=== PATIENT | male | born 1985 | race Hispanic/Latino ===

== ENCOUNTER 2017-12-18 20:28 | Inpatient (IN) | payer SELFPAY ==
[~2017-12-18 20:28] MED LIST: ISOVUE-370 76%-LOCM 1 ML ONE
[2017-12-18] MEDS ORDERED: Morphine 4 MG/ML VIAL ONE (21:54)
[2017-12-18] MEDS ORDERED: Ondansetron HCl/PF 4 MG/2 ML Vial ONE (21:54)
[2017-12-18 22:08] LABS: #Basophils 0.1 thou/uL (0.0-0.2); #Eosinphils 0.2 thou/uL (0.0-0.7); #Lymphocytes 2.2 thou/uL (1.20-3.40); #Monocytes 1.1 thou/uL (0.11-0.59); %Basophils 0.6 % (0.0-1.0); %Eosinophils 1.6 % (0.0-10.0); %Lymphocytes 20.6 % (21.0-51.0); %Monocytes 10.2 % (0.0-10.0); Hemoglobin 13.2 g/dL (14.0-18.0); Mean Corpuscular HGB CONC 32.5 g/dL (32.0-36.0); Mean Corpuscular Hemoglobin 29.2 pg (27.0-31.0); Mean Corpuscular Volume 90.1 fl (80.0-94.0); Mean Platelet Volume 7.1 fL (7.4-10.4); Platelet Count 266 thou/uL (130-400); RBC Distribution Width 12.3 % (11.5-14.5); Red Blood Cell (RBC) Count 4.51 mill/uL (4.70-6.10); White Blood Cell (WBC) Count 10.5 thou/uL (4.8-10.8)
[2017-12-18 22:30] LABS: ALT (SGPT) 22 U/L (8-55); AST (SGOT) 17 U/L (5-34); Albumin 4.1 g/dL (3.5-5.0); Alkaline Phosphatase 80 U/L (40-150); Anion Gap 12 mmol/L (10-20); BUN (Urea Nitrogen) 13 mg/dL (8.9-20.6); Bilirubin, Total 0.3 mg/dL (0.2-1.2); CRP (Inflammatory) 4.79 mg/dL (= or < 0.5); Calc. Creatinine Clearance 0 mL/min (70-130); Calcium 9.2 mg/dL (7.8-10.44); Carbon Dioxide 25 mmol/L (22-29); Chloride 105 mmol/L (98-107); Estimated GFR-MDRD Greater than 90; Globulin 3.4 g/dL (2.4-3.5); Glucose 91 mg/dL (70-105); Potassium 3.8 mmol/L (3.5-5.1); Protein, Total 7.5 g/dL (6.0-8.3); Sodium 138 mmol/L (136-145)
[2017-12-19] MEDS ORDERED: Ketorolac Tromethamine 30 MG/ML VIAL ONE (00:21)
[2017-12-19] MEDS ORDERED: Piperacillin/Tazobactam 4.5 GM in Sodium Chloride 0.9% 100 ML IVPB SCH (00:30)
[2017-12-19] MEDS: Sodium Chloride 0.9% 1,000 ML IV SCH ×2 (03:00→13:47)
[2017-12-19 03:27] VITALS: BMI 40.1
--- NOTE | 2017-12-19 06:55 | CT ---
CT PELVIS: 12/18/2017 HISTORY: Swelling in the perianal region. Pain. COMPARISON: None. TECHNIQUE: Serial axial CT imaging is obtained at 5 mm intervals, through the pelvis, without contrast. Coronal reformatted imaging obtained. FINDINGS: There is skin thickening and fat stranding involving the perineum, in the perianal region, best seen on axial images 54 through 60, to the right of midline, with a very small subcutaneous fluid collecti on in this region, on coronal image 104 and axial image 58, measuring in the 1.2 cm range, suggesting a small abscess or phlegmon. The imaged bowel is unremarkable, including the appendix. The vascular structures appear patent. No acute osseous abnormality is seen. IMPRESSION: There is perineal subcutaneous fat stranding and skin thickening in the perianal region, primarily to the right of midline, with a small, subcutaneous fluid collection, suggesting a small perineal, wes anal abscess/phlegmon, just anterior and to the right of the expected region of the anus. POS: NEHA
[2017-12-19] MEDS ORDERED: HYDROcodone/Acetaminophen 5/325 mg Tablet PO PRN (08:14)
--- NOTE | 2017-12-19 08:22 | HP ---
CHIEF COMPLAINT: Rectal pain. HISTORY OF PRESENT ILLNESS: This is a 32-year-old male with minimal past medical history, who presen ts with a chief complaint of rectal pain over the last 4 days that has been progressively worsening a nd now he has painful bowel movements. At the time of my evaluation, the patient's pain is significantly improved on morphine p.r.n. for yenny n control. He has been seen in the emergency department and had a CT of the pelvis completed, and it demonstrates perirectal abscess. It also appears that it just started draining earlier today until this point in time. REVIEW OF SYSTEMS: As per HPI. Constitutional: No fevers, no chills. HEENT: No headaches, no diz ziness. No vision changes. Cardiovascular: No chest pressure, no chest pain, no left-sided arm num bness or tingling. Respiratory: No shortness of breath, no cough, no congestion, no postnasal drip. Gastrointestinal: No nausea, vomiting, abdominal pain, diarrhea or constipation. Musculoskeletal: No new myalgias or arthralgias. Remainder of review of systems, otherwise, negative. PAST MEDICAL HISTORY: As per above. No prior surgeries. No prior medical issues that the patient i s aware of. HOME MEDICATIONS: None. ALLERGIES: None. FAMILY HISTORY: No family history of recurrent infections, recurrent abscesses, or gastrointestinal issues that the patient is aware of. SOCIAL HISTORY: Denies any alcohol, tobacco, or illicit drug use. He is accompanied by his signific ant other today. PHYSICAL EXAMINATION: VITAL SIGNS: Temperature 99.2, pulse of 82, respirations 18, satting 95% on room air, blood pressure 108/52. GENERAL: The patient is awake, alert, oriented x3, in no acute distress, lying in the bed. HEENT: Moist mucous membranes. Equal ocular motions are intact. The patient is normocephalic, atra umatic. CARDIOVASCULAR: S1 and S2. No murmurs, rubs, or gallops. Pulses 2+ bilateral upper extremities, no pitting pedal edema. RESPIRATORY: Clear to auscultation bilaterally. No wheezes, rales, or rhonchi. Reasonable air move ment. ABDOMEN: Positive bowel sounds. Soft, nontender to palpation. MUSCULOSKELETAL: Moving all 4 extremities equally. LABORATORY DATA AND IMAGING: WBC 10.5, hemoglobin 13.2, hematocrit 40.6, platelets 266. Sodium 138, potassium 3.8, chloride 105, bicarbonate 25, BUN 13, creatinine 0.8, glucose 91, lactic acid 1.2, ca lcium 9.2, total bilirubin 0.3, AST 17, ALT 22, alkaline phosphatase 80, CRP 4.79, total protein 7.5, albumin 4.1. 12/18/2017, pelvis CT, impression, "there is perineal subcutaneous fat stranding and skin thickening in the perianal region, primarily to the right of midline, with a small subcutaneous fluid collection, suggesting a small perineal/perianal abscess/phlegmon just anterior to the right of the expected region of the anus." ASSESSMENT AND PLAN: This is a 32-year-old male, who presents with rectal pain. 1. Rectal pain, likely represent a perianal abscess as discussed above in the imaging. The patient would initially have received a dose of piperacillin-tazobactam. Given the patient's debility, we wi ll deescalate to metronidazole and ciprofloxacin. I appreciate surgical consultation. Pain control, n.p.o., IV fluids. 2. Diet: As above. 3. Activity: As tolerated. 4. Deep venous thrombosis prophylaxis, heparin. Thank you for asking me to care for the patient. If any questions or concerns, contact me at [facility].
[2017-12-19] MEDS ORDERED: Ketorolac Tromethamine 30 MG/ML VIAL IVP PRN (11:05)
[2017-12-19] MEDS ORDERED: Acetaminophen 1,000 MG in Premix Bag 1 BAG IVPB PRN (11:05)
[2017-12-19] MEDS ORDERED: Acetaminophen 1,000 MG in Premix Bag 1 BAG IVPB SCH (11:15)
[2017-12-19] MEDS ORDERED: Ketorolac Tromethamine 30 MG/ML VIAL IVP SCH (11:15)
--- NOTE | 2017-12-19 11:32 | HP ---
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 He was seen in the emergency room yesterday evening. CAT scan obtained of pelvis revealing perianal stranding, perineal soft subcutaneous fluid collection sug gesting abscess or phlegmon. He reports normal urinary stream. White count is 10. He has remained afebrile. Exam reveals perineal mass suspicious for an abscess. There is no redness. There is priscilla ration. ALLERGIES: None. TOBACCO: None. ALCOHOL: None. MEDICATIONS: None routinely. PAST SURGICAL HISTORY: Noncontributory. REVIEW OF SYSTEMS: Ten point noncontributory. PHYSICAL EXAMINATION: GENERAL: 5' 2", 219 pounds, 40 BMI. VITAL SIGNS: Temperature 99.2, 82 heart rate, 18 respiration rate, 108/52. HEENT: Unremarkable. LUNGS: Clear to auscultation. CARDIAC: No murmur or gallop. ABDOMEN: Soft, nontender, no masses. EXTREMITIES: Unremarkable. No ankle edema, no venous stasis changes. No lymphadenopathy, groins, a xilla or neck. In his perineum, there is an induration to the right of midline is tender. It is obl miriam. It is between the anus and the scrotum. ASSESSMENT AND PLAN: Perineal abscess. We will plan incision and drainage. We will plan to place a Chatterjee intraoperatively to avoid urethral injury. Risks of infection, bleeding, reoperation and plan to leave the wound open to heal by secondary intention expectations. He will be discharged home tod ay on oral antibiotics with outpatient wound care. Follow up in my office in 2-3 weeks explained. H e will be off for 2-3 days.
[2017-12-19] MEDS ORDERED: metroNIDAZOLE 500 MG in Premix Bag 1 BAG IVPB SCH (14:00)
--- NOTE | 2017-12-19 15:08 | PDOC.EVN ---
Event Note - Event Note Event Note: pt seen & examined. Care reviewed. To OR today per GS for I&D of perianal abscess. Pt denies h/o same, no AP/bloody diarhea.No personal or FH of IBD. cont ABx. Dc when Ok w GS. hemodynamically stable
[2017-12-19] MEDS ORDERED: Ondansetron HCl/PF 4 MG/2 ML Vial ONE (15:16)
[2017-12-19] MEDS ORDERED: Lidocaine 1% PF 5 ML VIAL ONE (15:16)
[2017-12-19] MEDS ORDERED: Propofol 200 MG/20 ML VIAL ONE (15:16)
[2017-12-19] MEDS ORDERED: Dexamethasone 20 MG/5 ML VIAL ONE (15:16)
[2017-12-19] MEDS ORDERED: Glycopyrrolate 0.2 MG/ML 5 ML SYRINGE ONE (15:16)
[2017-12-19] MEDS ORDERED: Succinylcholine Chloride 20 MG/ML 10 ml SYRINGE FS ONE (15:16)
[2017-12-19] MEDS ORDERED: Midazolam HCl 2 mg/2 ml Vial ONE (16:24)
[2017-12-19] MEDS ORDERED: Fentanyl 250 MCG/5 ML VIAL ONE ×2 (16:24→16:39)
[2017-12-19] MEDS ORDERED: Lidocaine 2% Jelly 5 ML TUBE ONE (16:43)
[2017-12-19] MEDS ORDERED: Bupivacaine HCl 0.5%/Epinephrine 1:200,000/PF 30 ml Vial ONE (16:43)
[2017-12-19] MEDS ORDERED: Ibuprofen 600 MG TAB PO PRN (18:03)
[2017-12-19] MEDS ORDERED: Acetaminophen 500 MG TAB PO PRN (18:03)
[2017-12-19] MEDS ORDERED: traMADol HCl 50 MG TAB PO PRN ×2 (18:03)
[2017-12-19] MEDS ORDERED: Promethazine HCl 25 MG/ML VIAL IM PRN (18:05)
[2017-12-19] MEDS ORDERED: Promethazine HCl 25 MG/ML VIAL SLOW IVP PRN (18:05)
[2017-12-19] MEDS ORDERED: Ondansetron HCl/PF 4 MG/2 ML Vial IVP PRN (18:05)
--- NOTE | 2017-12-19 19:39 | OP ---
DATE OF PROCEDURE: 12/19/2017 PREOPERATIVE DIAGNOSIS: Perirectal abscess, right of midline perineum. POSTOPERATIVE DIAGNOSIS: Perirectal abscess, right of midline perineum. PROCEDURE PERFORMED: Incision and drainage of perirectal abscess. SURGEON: Dr. Jesse Aguilera. ANESTHESIA: General. Local 0.5% Marcaine with epinephrine, 30 mL, mixed with 2% Xylocaine, 10 mL, t otal volume mixture used. FINDINGS: Perirectal abscess, localized, wound packed with a dry dressing and the patient is to vanessa ve that in the morning after soaking in the bath, warm to hot water, wash the wound daily with soap a nd water, and apply ABD or Kotex pad. Follow up in my office in 1-2 weeks. Expect drains for a few weeks. PROCEDURE IN DETAIL: The patient was taken to the operating room where under general anesthesia in t he dorsal lithotomy position, buttocks, perineum and scrotum area were prepared with Betadine. Chatterjee catheter placed. An incision was made radially at the 11 o'clock position to drain the right of mid line perineal perirectal abscess. Copious purulent material was drained. This was localized. Wound irrigated. Hemostasis gained with the cautery. Wound packed with gauze dressing. The patient tole rated the procedure well without complications. PLAN: The patient is to be discharged home and follow up in my office in about a week to 10 days. G iven prescription for Augmentin for 5 days as a preventive, although there is no active infection or cellulitis remaining.
[2017-12-19] MEDS: Amoxicillin/Potassium Clav 500 MG TAB PO SCH (21:14)
[2017-12-20 07:52] VITALS: BP 117/73; TEMP 98.3
[2017-12-20] MEDS: Amoxicillin/Potassium Clav 500 MG TAB PO SCH (08:35)
--- NOTE | 2017-12-20 14:23 | DIS ---
DATE OF ADMISSION: 12/19/2017 DATE OF DISCHARGE: 12/20/2017 PRIMARY DISCHARGE DIAGNOSIS: Perirectal abscess, status post incision and drainage. DISCHARGE MEDICATIONS: Augmentin 500 mg p.o. b.i.d. for 5 days and pain medications as per the [facility] Surgery team. CONSULTATIONS: General Surgery, Dr. Aguilera. PROCEDURES DONE IN THE HOSPITAL: CT scan of the pelvis with contrast which shows perineal subcutaneo us fat stranding and skin thickening in the perianal region primarily to the right of the midline wit h a small subcutaneous fluid collection suggesting a small perianal abscess. Incision and drainage of the perirectal abscess. PRIMARY CARE PHYSICIAN: The patient does not have any PCP. [facility] is [facility] HISTORY OF PRESENT ILLNESS: Mr. Justice is an otherwise healthy 32-year-old male without a ny significant past medical history who presented to the ER with chief complaints of rectal pain for the last 4 days, worse with bowel movements. In the emergency room, he underwent a CT scan of the pe lvis which demonstrated perirectal abscess and he was admitted for further evaluation and treatment. He was started on IV antibiotics empirically. Please see admission history and physical for further detail. General Surgery was consulted. HOSPITAL COURSE: Dr. Aguilera saw the patient and took him to the OR to drain the abscess. He tolerat ed the I&D procedure very well, which was done yesterday. He was monitored overnight after the proce dure because of the pain. Eventually, his symptoms improved. He was afebrile throughout his hospita lization. He was given antibiotics by General Surgery to finish for 5 more days. He is instructed t o follow up as an outpatient with Dr. Aguilera and he verbalized understanding. This morning he was seen and examined prior to discharge. PHYSICAL EXAMINATION: VITAL SIGNS: Temperature 98.3, pulse of 56, respirations 18, saturating 94% on room air, blood press ure 117/73. GENERAL: No acute distress, awake, alert, oriented x3. CHEST: Clear to auscultation without any wheezing, rales or rhonchi. HEART: Rate and rhythm is regular without any murmur, rubs or gallops. ABDOMEN: Soft, nontender, nondistended, positive bowel sounds. LABORATORY DATA: Blood cultures remain negative until date. He will follow up with Dr. Aguilera for the results of the final cultures. Discharge plan was discussed with the patient who verbalized understanding.
--- NOTE | 2017-12-22 11:52 | PQF ---
JESSE AGUILERA MD [id number] CLINICAL DOCUMENTATION CLARIFICATION FORM: POST DISCHARGE Addendum to original discharge summary date: ____ Late entry note date: __ DATE: 12/22/17 ATTN: Dr. Jesse Aguilera Please exercise your independent, professional judgment in responding to the clarification form. Clinical indicators are provided on the bottom of this form for your review Please check appropriate box(s): BMI > 40 with associated diagnosis of: (check one) [ ] Morbid (Severe) Obesity [ ] Due to excess calories [ ] with Alveolar Hypoventilation (Pickwickian syndrome) [ ] Overweight [ ] Obesity [ ] Other diagnosis [ ] Unable to determine In addition, please specify: Present on Admission (POA): [ ] Yes [ ] No [ ] Unable to Determine For continuity of documentation, please document condition throughout progress notes and discharge summary. Thank You. BMI < 19 Under weight 19 - 24.9 Healthy 25.0 - 29.9 Slightly Overweight 30.0 - 34.9 Obese 35.0 - 39.9 Severely Obese 40.0 and Over Morbidly Obese CLINICAL INDICATORS - SIGNS / SYMPTOMS / LABS BMI of: Weight gain Difficulty ambulating / positioning self-performing ADLs Unable to perform or limited testing due to pt. size Need for bariatric bed/large wheelchair, etc. Additional staff for transfers, positioning, ADLs MTDD
== END 2017-12-20 11:31 | disposition home or self-care (01) | DRG 988 ==
LOC: ERS 20:28 → OBSVTOIN 12-19 00:33 → 2SW 12-19 00:33
PROVIDERS: ADMIT Internal Medicine; ATTEND Internal Medicine
PROC: 0J9B0ZZ Drainage of Perineum Subcutaneous Tissue and Fascia, Open Approach (ICD-10-PCS; principal; 2017-12-19)
DX: K61.1 Rectal abscess (principal); Z68.41 Body mass index [BMI] 40.0-44.9, adult; E66.01 Morbid (severe) obesity due to excess calories
CPT/HCPCS: 72193; 80053; 83605; 85025; 86140; 87040; 96365; 96367; 96375; A4216; J0131; J0670; J0744; J1100; J1885; J2001; J2250; J2270; J2405; J2543; J2704; J3010; J3370; J7050

== ENCOUNTER 2020-08-06 00:04 | Emergency (ER) | payer SELFPAY ==
[2020-08-06 00:42] LABS: #Basophils 0.1 thou/uL (0.0-0.2); #Eosinphils 0.2 thou/uL (0.0-0.7); #Lymphocytes 2.7 thou/uL (1.20-3.40); #Monocytes 0.7 thou/uL (0.11-0.59); %Basophils 1.3 % (0.0-1.0); %Lymphocytes 34.6 % (21.0-51.0); %Monocytes 9.6 % (0.0-10.0); %Neutrophils 52.5 % (42.0-75.0); Hemoglobin 13.7 g/dL (14.0-18.0); Mean Corpuscular HGB CONC 34.1 g/dL (32.0-36.0); Mean Corpuscular Volume 88.1 fL (78.0-98.0); Mean Platelet Volume 7.5 fL (7.4-10.4); Platelet Count 260 thou/uL (130-400); RBC Distribution Width 12.4 % (11.5-14.5); Red Blood Cell (RBC) Count 4.56 mill/uL (4.70-6.10); White Blood Cell (WBC) Count 7.7 thou/uL (4.8-10.8)
[2020-08-06 00:48] LABS: INR-International Normal Ratio 0.9; Prothrombin Time 12.7 sec (12.0-14.7)
[2020-08-06 01:03] LABS: ALT (SGPT) 24 U/L (8-55); AST (SGOT) 18 U/L (5-34); Albumin 4.2 g/dL (3.5-5.0); Alkaline Phosphatase 80 U/L (40-110); Anion Gap 16 mmol/L (10-20); BUN (Urea Nitrogen) 16 mg/dL (8.9-20.6); Bilirubin, Total 0.3 mg/dL (0.2-1.2); Calc. Creatinine Clearance 0 mL/min (70-130); Calcium 9.4 mg/dL (7.8-10.44); Carbon Dioxide 22 mmol/L (22-29); Chloride 107 mmol/L (98-107); Estimated GFR-MDRD Greater than 90; Globulin 3.3 g/dL (2.4-3.5); Glucose 154 mg/dL (70-105); Potassium 3.5 mmol/L (3.5-5.1); Protein, Total 7.5 g/dL (6.0-8.3); Sodium 141 mmol/L (136-145)
== END 2020-08-06 01:15 | disposition home or self-care (01) ==
LOC: ERS 00:04
DX: I83.891 Varicose veins of right lower extremity with other complications (principal)
CPT/HCPCS: 36415; 80053; 85025; 85610; 85730; 86850; 86900; 86901; 99283

== ENCOUNTER 2020-10-26 04:54 | Emergency (ER) | payer SELFPAY | END 2020-10-26 05:51 | disposition home or self-care (01) | LOC: ERS 04:54 | DX: I83.891 Varicose veins of right lower extremity with other complications (principal) | CPT/HCPCS: 12001 ==